=== PATIENT | female | born 1985 | race African-American/Black ===

== ENCOUNTER 2016-08-27 20:14 | Emergency (ER) ==
[2016-08-27 21:05] LABS: URINE SOURCE CLEAN CATCH
[2016-08-27 21:08] LABS: BILIRUBIN URINE NEGATIVE (NEGATIVE); BLOOD URINE NEGATIVE (NEGATIVE); CLARITY CLEAR (CLEAR); COLOR YELLOW; GLUCOSE URINE NEGATIVE (NEGATIVE); LEUKOCYTES URINE TRACE (NEGATIVE); NITRITE URINE NEGATIVE (NEGATIVE); PH URINE 6.5; PROTEIN URINE NEGATIVE (NEGATIVE); SP GRAVITY URINE 1.015; URINE MICROSCOPIC NEEDED? YES; UROBILINOGEN URINE NORMAL
[2016-08-27 21:26] LABS: URINE EPITHELIAL CELLS <10 /HPF (<10); URINE WBC <10 /HPF (<10)
[2016-08-27 22:00] LABS: MANUAL DIFF NEEDED? NO
[2016-08-27 22:04] LABS: BASO% 0.2 % (0.0-0.8); EOS# 0.13 X1000 (0.0-0.7); EOS% 2.1 % (0.0-10.0); HEMOGLOBIN 12.8 g/dL (12.0-16.0); IMM GRAN# 0.01 X1000 (0.0-0.04); IMM GRAN% 0.2 % (0.0-0.5); LYMPH# 2.95 X1000 (1.2-3.4); LYMPH% 48.7 % (20.5-51.1); MCH 31.1 PG (27-31); MCHC 33.7 g/dL (33-37); MCV 92.5 FL (81-99); MONO# 0.44 X1000 (0.11-0.59); MONO% 7.3 % (1.7-9.3); MPV 9.5 FL (7.4-10.4); NEUT% 41.5 % (42.2-75.2); PLT 309 X1000 (130-400); RBC 4.11 XMIL (4.2-5.4)
[2016-08-27 22:20] LABS: AGAP 12; ALBUMIN 4.2 g/dL (3.5-5.0); ALKALINE PHOSPHATASE 72 U/L (32-104); BUN 8 mg/dL (8-22); CALCIUM 9.1 mg/dL (8.8-10.2); CHLORIDE 101 mmol/L (98-107); COSMO 270; GOT 16 U/L (10-30); GPT 17 U/L (10-36); POTASSIUM 3.9 mmol/L (3.5-5.1); SODIUM 136 mmol/L (136-145); TCO2 23 mmol/L (25-35)
--- NOTE | 2016-08-27 22:20 | PROVIDER DOCUMENTATION ---
HPI-Abdominal Pain/GI Problem - General Chief Complaint: Abdominal Pain Stated Complaint: RIGHT SIDE PAIN/N/FEVER Time Seen by Provider: 08/27/16 21:53 Source: patient Allergies/Adverse Reactions: Patient Allergies Allergy/AdvReac Type Severity Reaction Status Date / Time codeine Allergy Intermediate ITCHING Verified 01/22/16 19:41 Penicillins Allergy Intermediate RASH Verified 01/22/16 19:41 Sulfa (Sulfonamide Allergy Unknown Verified 01/22/16 19:41 Antibiotics) - History of Present Illness-ABD Nature of Presenting Problems: 31 y/o BF c/o R flank pain, RUQ abd. pain, N/V x 1 day. Pt states pain 10/10 and crampy in nature. States vomit and pain worse with eating. Denies hx of kidney stones, reports cholecystectomy in 2013. Unsure if started in RUQ or R flank. Denies any urinary sxs. Review of Systems - Adult - REVIEW OF SYSTEMS - ADULT Constitutional: reports: see HPI, fever. denies: chills Eyes: reports: no symptoms reported. denies: blurred vision, double vision Ears, Nose, Mouth & Throat: reports: no symptoms reported. denies: ear pain, nose pain Cardiovascular: reports: no symptoms reported. denies: chest pain, palpitations Respiratory: reports: no symptoms reported. denies: dyspnea on exertion, shortness of breath Gastrointestinal: reports: see HPI, abdominal pain, nausea, vomiting. denies: constipation, diarrhea Genitourinary: reports: flank pain. denies: dysuria, frequency, hematuria Musculoskeletal: reports: no symptoms reported. denies: joint pain, joint swelling Integumentary: reports: no symptoms reported. denies: nail changes, rash Neurological: reports: no symptoms reported. denies: numbness, paresthesia Psychiatric: reports: no symptoms reported Endocrine: reports: no symptoms reported. denies: cold intolerance, heat intolerance Hematologic/Lymphatic: reports: no symptoms reported. denies: easy bruising, prolonged bleeding Allergic/Immunologic: reports: no symptoms reported All Other Systems: Reviewed and Negative Past History - Adult - PAST MEDICAL HISTORY-ADULT Review of Records: reports: Nursing Assessment Review, Medications Reviewed Major Childhood Illnesses: reports: denies history Cardiovascular: reports: denies history Obstetrical/Gynecological: reports: other (pcos) - PRIOR SURGERIES/PROCEDURES Surgical/Procedure History: reports: cholecystectomy - IMMUNIZATION STATUS Childhood Immunizations: See Nurse Assessment Flu Vaccine: See Nurse Assessment - FAMILY HISTORY Family History: reviewed, not pertinent - SOCIAL HISTORY Smoking: cigarettes, less than 1 pack/day Provider spent 3-5 mins advising pt. on dangers of tobacco.: Discussed manners to quit use, and f/u contacts for add'l counseling. Physical Exam-General - PHYSICAL EXAM-ADULT Initial Vital Signs Reviewed: Yes - CONSTITUTIONAL General Appearance: alert, mild distress - EYES Eyes: pink conjunctivae - HEAD, EARS, NOSE, MOUTH & THROAT HENMT: normocephalic/atraumatic, moist mucous membranes - NECK Neck: normal inspection - RESPIRATORY Respiratory: lungs clear, normal breath sounds. negative: crackles, rales, rhonchi, stridor, wheezing - CARDIOVASCULAR Cardiovascular: regular rate, rhythm. negative: bradycardia, tachycardia - GASTROINTESTINAL (ABDOMEN) Abdominal Exam: normal bowel sounds, soft, tenderness (RUQ). negative: distended, guarding, rigid, rebound, McBurney's point tenderness - MUSCULOSKELETAL Back Exam: CVA tenderness (R) Extremity: normal gait - SKIN Integumentary: normal color, normal turgor, warm/dry - NEUROLOGIC Neurologic: negative: aphasia - PSYCHIATRIC Psych/Mental Status: normal mood/affect, normal thought content, normal thought process, oriented x 3 Progress - PLAN OF CARE/RESULTS Progress/Plan/Lab Results: Laboratory Tests 08/27/16 08/27/16 08/27/16 21:00 21:04 21:48 WBC RBC Hgb Hct MCV MCH MCHC RDW Std Deviation Plt Count MPV Immature Gran % (Auto) Neut % (Auto) Lymph % (Auto) [place] % (Auto) Eos % (Auto) Baso % (Auto) Immature Gran # (Auto) Neut # (Auto) Lymph # (Auto) [place] # (Auto) Eos # (Auto) Baso # (Auto) Sodium 136 Potassium 3.9 Chloride 101 Carbon Dioxide 23 L Anion Gap 12 BUN 8 Creatinine 0.8 Estimated GFR/1.73 m2 > 60 BUN/Creatinine Ratio 10 Glucose 90 Calculated Osmolality 270 Calcium 9.1 Total Bilirubin 0.40 AST 16 ALT 17 Alkaline Phosphatase 72 Total Protein 8.0 Albumin 4.2 Globulin 4.0 Albumin/Globulin Ratio 1.0 Lipase Urine Source CLEAN CATCH Urine Color YELLOW Urine Clarity CLEAR Urine pH 6.5 Ur Specific [place] 1.015 Urine Protein NEGATIVE Urine Ketones TRACE Urine Blood NEGATIVE Urine Nitrite NEGATIVE Urine Bilirubin NEGATIVE Urine Urobilinogen NORMAL Urine Microscopic RBC Not Reportable Urine WBC TRACE A Urine Microscopic WBC <10 Ur Epithelial Cells <10 Urine Glucose NEGATIVE Urine Test NEGATIVE 08/27/16 08/27/16 21:48 22:10 WBC 6.06 RBC 4.11 L Hgb 12.8 Hct 38.0 MCV 92.5 MCH 31.1 H MCHC 33.7 RDW Std Deviation 13.3 Plt Count 309 MPV 9.5 Immature Gran % (Auto) 0.2 Neut % (Auto) 41.5 L Lymph % (Auto) 48.7 [place] % (Auto) 7.3 Eos % (Auto) 2.1 Baso % (Auto) 0.2 Immature Gran # (Auto) 0.01 Neut # (Auto) 2.52 Lymph # (Auto) 2.95 [place] # (Auto) 0.44 Eos # (Auto) 0.13 Baso # (Auto) 0.01 Sodium Potassium Chloride Carbon Dioxide Anion Gap BUN Creatinine Estimated GFR/1.73 m2 BUN/Creatinine Ratio Glucose Calculated Osmolality Calcium Total Bilirubin AST ALT Alkaline Phosphatase Total Protein Albumin Globulin Albumin/Globulin Ratio Lipase 71 H Urine Source Urine Color Urine Clarity Urine pH Ur Specific [place] Urine Protein Urine Ketones Urine Blood Urine Nitrite Urine Bilirubin Urine Urobilinogen Urine Microscopic RBC Urine WBC Urine Microscopic WBC Ur Epithelial Cells Urine Glucose Urine Test Orders Category Date Time Status ABDOMEN/PELVIS W/O CONTRAST [CT] Stat Exams 08/27/16 22:11 Completed CBC WITH DIFF [HEME] Stat Lab 08/27/16 21:48 Completed CMP [COMPREHENSIVE METABOLIC PANEL] [CHEM] Stat Lab 08/27/16 21:48 Completed LIPASE [CHEM] Stat Lab 08/27/16 22:10 Completed TEST-URINE [PREG] Stat Lab 08/27/16 21:[address] [URINALYSIS] Stat Lab 08/27/16 21:04 Completed URINE MICROSCOPIC [URINALYSIS] Stat Lab 08/27/16 21:04 Completed Morphine Med 08/28/16 00:09 Discontinued 4 mg IM NOW ONE Promethazine [Phenergan] Med 08/28/16 00:08 Discontinued 25 mg IM NOW ONE Vital Signs Temp Pulse Resp BP Pulse Ox 08/28/16 00:59 97.4 F L 82 18 146/90 100 08/27/16 20:50 97.1 F L 84 18 144/83 100 codeine Allergy (Intermediate, Verified 01/22/16 19:41) ITCHING Penicillins Allergy (Intermediate, Verified 01/22/16 19:41) RASH Sulfa (Sulfonamide Antibiotics) Allergy (Verified 01/22/16 19:41) Unknown pt. states she has NO allergy to Sulfa Polyethylene Glycol 3350 [Miralax] 17 gm PO DAILY #20 powd.pack 08/28/16 Promethazine [Phenergan] 25 mg PO Q6H PRN PRN #20 tablet 08/28/16 Laboratory 08/27/16 08/27/16 08/27/16 22:10 21:48 21:48 WBC 6.06 RBC 4.11 L Hgb 12.8 Hct 38.0 MCV 92.5 MCH 31.1 H MCHC 33.7 RDW Std Deviation 13.3 Plt Count 309 MPV 9.5 Immature Gran % (Auto) 0.2 Neut % (Auto) 41.5 L Lymph % (Auto) 48.7 [place] % (Auto) 7.3 Eos % (Auto) 2.1 Baso % (Auto) 0.2 Immature Gran # (Auto) 0.01 Neut # (Auto) 2.52 Lymph # (Auto) 2.95 [place] # (Auto) 0.44 Eos # (Auto) 0.13 Baso # (Auto) 0.01 Sodium 136 Potassium 3.9 Chloride 101 Carbon Dioxide 23 L Anion Gap 12 BUN 8 Creatinine 0.8 Estimated GFR/1.73 m2 > 60 BUN/Creatinine Ratio 10 Glucose 90 Calculated Osmolality 270 Calcium 9.1 Total Bilirubin 0.40 AST 16 ALT 17 Alkaline Phosphatase 72 Total Protein 8.0 Albumin 4.2 Globulin 4.0 Albumin/Globulin Ratio 1.0 Lipase 71 H Urine Source Urine Color Urine Clarity Urine pH Ur Specific [place] Urine Protein Urine Ketones Urine Blood Urine Nitrite Urine Bilirubin Urine Urobilinogen Urine Microscopic RBC Urine WBC Urine Microscopic WBC Ur Epithelial Cells Urine Glucose Urine Test 08/27/16 08/27/16 21:04 21:00 WBC RBC Hgb Hct MCV MCH MCHC RDW Std Deviation Plt Count MPV Immature Gran % (Auto) Neut % (Auto) Lymph % (Auto) [place] % (Auto) Eos % (Auto) Baso % (Auto) Immature Gran # (Auto) Neut # (Auto) Lymph # (Auto) [place] # (Auto) Eos # (Auto) Baso # (Auto) Sodium Potassium Chloride Carbon Dioxide Anion Gap BUN Creatinine Estimated GFR/1.73 m2 BUN/Creatinine Ratio Glucose Calculated Osmolality Calcium Total Bilirubin AST ALT Alkaline Phosphatase Total Protein Albumin Globulin Albumin/Globulin Ratio Lipase Urine Source CLEAN CATCH Urine Color YELLOW Urine Clarity CLEAR Urine pH 6.5 Ur Specific [place] 1.015 Urine Protein NEGATIVE Urine Ketones TRACE Urine Blood NEGATIVE Urine Nitrite NEGATIVE Urine Bilirubin NEGATIVE Urine Urobilinogen NORMAL Urine Microscopic RBC Not Reportable Urine WBC TRACE A Urine Microscopic WBC <10 Ur Epithelial Cells <10 Urine Glucose NEGATIVE Urine Test NEGATIVE Discussed f/u and medication use with the pt including results. Discussed pt with Dr. De Jesus; he agreed with d/c plan. - CT/MRI 1 CT Study: Abdomen, Pelvis Impression: See EMR Report (Normal noncontrast CT of the abdomen/pelvis, per Dr. Gillette (Radiology group)) Departure - Departure Time of Disposition Order: 00:10 DIAGNOSIS: Abdominal pain Qualifiers: Abdominal location: epigastric Qualified Code(s): R10.13 - Epigastric pain Vomiting Qualifiers: Vomiting type: unspecified Vomiting Intractability: non-intractable Nausea presence: unspecified Qualified Code(s): R11.10 - Vomiting, unspecified Disposition: HOME 01 Certified Medical Emergency: Emergent Condition: Stable Additional Instructions: Take medications as directed. Follow up with specialist for further management. Return if symptoms get worse. ED Follow Up Instructions: You have been treated by a care provider in the Emergency Department. These instructions are being provided to you so you can have an understanding of how to care for yourself upon discharge. Upon discharge from the Emergency Department, you are responsible for making arrangements for follow-up care by a physician of your choice. Take all prescribed medications as directed. Return to the Emergency Department immediately for any new or worsening symptoms. You may call the Physician Referral phone number at [phone] to obtain a list of Physicians who are taking new patients. Prescriptions: Polyethylene Glycol 3350 [Miralax] 17 gm PO DAILY #20 powd.pack Promethazine [Phenergan] 25 mg PO Q6H PRN PRN #20 tablet PRN Reason: Nausea Referrals: Xin Rankin MD [Primary Care Provider] - Danyel Sahu MD [STAFF PHYSICIAN] - Forms: Return to School/Parent Work Instructions: Nausea and Vomiting, [id number], Abdominal Pain, Adult, Easy-to -Read, Promethazine tablets, Polyethylene Glycol powder Attestation - Physician/ Mid-level Attestation Patient care was provided by Mid-level provider (IRRIGATION LABORER/PA):: Yes Mid-level provider:: Carin Chavez Mid-level documentation review:: The Mid-level provider documentation, treatment plan and medical decision making was reviewed by the physician who agrees with all treatment and medical decision making by the MLP.
[2016-08-28] MEDS ORDERED: PHENERGAN IM ONE (00:08)
[2016-08-28] MEDS ORDERED: MORPHINE IM ONE (00:09)
[2016-08-28 01:00] VITALS: BP 146/90
--- NOTE | 2016-08-28 08:36 | Diag Imaging Result Document ---
PROCEDURE NAME: ABDOMEN/PELVIS W/O CONTRAST - 08/27/2016 CT ABDOMEN AND PELVIS WITHOUT CONTRAST: COMPARISON: 01/23/2016. FINDINGS: There has been a previous cholecystectomy. There is no evidence of biliary dilatation. The liver, spleen, adrenal glands, kidneys, pancreas, appendix, system, and GI tract are grossly unremarkable. No focal inflammatory changes, free abdominal gas, or free fluid is appreciated. IMPRESSION: No definite acute pathology.
== END 2016-08-28 01:00 | disposition home or self-care (01) ==
LOC: P.ED 20:14
DX: R10.13 Epigastric pain (principal); R11.2 Nausea with vomiting, unspecified; R10.11 Right upper quadrant pain; R10.9 Unspecified abdominal pain; E28.2 Polycystic ovarian syndrome; F17.210 Nicotine dependence, cigarettes, uncomplicated; Z71.6 Tobacco abuse counseling
CPT/HCPCS: 74176; 80053; 81001; 81025; 83690; 85025; 96372; J2270; J2550